=== PATIENT | female | born 1980 | race African-American/Black ===

== ENCOUNTER 2016-07-25 01:57 | Emergency (ER) | payer BC, OTHER ==
[~2016-07-25] VITALS: Ht 160 cm; Wt 75.4 kg
[2016-07-25 02:05] VITALS: TEMP 36.7; Ht 160 cm; Wt 75.4 kg
[2016-07-25] MEDS ORDERED: ALBUT/IPRATROP 3MG/0.5MG NEB 3 ML VIAL INH ONE (02:30)
[2016-07-25] MEDS ORDERED: PRED20TA2 PO (03:04)
[2016-07-25 03:15] VITALS: BP 158/64; PULSE 90; O2SAT 98
--- NOTE | 2016-07-25 07:03 | DIAGNOSTIC IMAGING REPORT ---
CHEST 2 VIEWS ROUTINE CLINICAL HISTORY: Cough. Wheezing COMPARISON STUDY: No previous studies for comparison. FINDINGS: The cardiac and mediastinal contours are normal. There is no evidence of focal pulmonary consolidation. There is no evidence of failure. No pleural effusions are visualized.[ IMPRESSION: No active disease in the chest. Electronically signed by: Dakota Hutchinson M.D. 07/25/2016 7:02 AM Dictated Date/Time: 07/25/2016 7:02 AM
--- NOTE | 2016-07-25 22:09 | EMERGENCY ROOM VISIT NOTE ---
History First contact with patient: 02:11 Chief Complaint: SHORTNESS OF BREATH Stated Complaint: SHORTNESS OF BREATH Nursing Triage Summary: pt reports cough with wheezing and sob started last night at [facility] dx with pneumonia started on abx and prednisone History of Present Illness The patient is a 35 year old female who presents to the Emergency Room with complaints of coughing and wheezing for the past 4-5 hours. The patient states that she was feeling well throughout the day, went home, and was getting ready for bed when she had a cigarette. The patient states that after she smoked a cigarette she began coughing and wheezing. She has had persistent symptoms for the past several hours because of this. She has not had fever or chills. No recent travel history. No chest pain. The patient has a history of pneumonia 2 months ago, and she is concerned that she may have the same. She rates her discomfort a 5/10. Review of Systems More than 10 systems were reviewed and otherwise negative with the exception of history of present illness. Past Medical/Surgical History No reported chronic medical disease Family History No pertinent family history Social History Smoking Status: Current Every Day Smoker Current/Historical Medications Scheduled Prednisone (Prednisone Tab), 2 TAB PO DAILY Allergies Coded Allergies: Shellfish (Verified Allergy, Intermediate, throat gets itchy, 07/25/16) Physical Exam Vital Signs Date Time Temp Pulse Resp B/P (MAP) Pulse Ox O2 Delivery O2 Flow Rate FiO2 07/25/16 03:15 90 20 158/64 98 07/25/16 02:05 36.7 93 18 159/98 95 Room Air Pain Rating (0-10): 0 Physical Exam VITALS: Vitals are noted on the nurse's note and reviewed by myself. Vital signs stable. GENERAL: Well-developed, well-nourished, black female, who is in no acute distress and resting comfortably. Patient is cooperative with the examination. HEAD: Normocephalic atraumatic. NECK: Supple without nuchal rigidity. No lymphadenopathy. No thyromegaly. Cervical spine is nontender. HEART: Regular rate and rhythm without murmurs gallops or rubs. LUNGS: Coarse wheezing and rhonchi throughout without distinct crackles or rales ABDOMEN: Positive normal bowel sounds x 4. Soft, nontender, without masses or organomegaly. No guarding or rebound tenderness. MUSCULOSKELETAL: No muscle atrophy, erythema, or edema noted. Full range of motion without joint tenderness in all extremities. Negative Homans sign bilateral Medical Decision & Procedures ER Provider Diagnostic Interpretation: CHEST 2 VIEWS ROUTINE CLINICAL HISTORY: Cough. Wheezing COMPARISON STUDY: No previous studies for comparison. FINDINGS: The cardiac and mediastinal contours are normal. There is no evidence of focal pulmonary consolidation. There is no evidence of failure. No pleural effusions are visualized.[ IMPRESSION: No active disease in the chest. Medications Administered Medications (Trade) Dose Ordered Sig/Wade Route Start Time Stop Time Status Last Admin Dose Admin Albuterol/ Ipratropium (Duoneb) 3 ml NOW ONCE INH 07/25/16 02:30 07/25/16 02:31 DC 07/25/16 02:29 3 ML Prednisone (PredniSONE TAB) 40 mg NOW STAT PO 07/25/16 02:18 07/25/16 02:20 DC 07/25/16 02:29 40 MG ED Course Physical exam and history were performed. Nursing notes and EMR were reviewed. Patient appears to have coughing and wheezing after smoking a cigarette for 5 hours ago. The patient does not appear toxic on examination. She was given a DuoNeb and a dose of prednisone here in the ER. Chest x-ray was performed and does not show evidence of pulmonary findings. After treatment here in the department the patient felt much better and her wheezing is significantly improved. The patient feels well for discharge home. I suspect that she may have some component of a reactive airway process that was exacerbated by smoking. She should discontinue smoking. She will be given a course of prednisone for the next few days and asked to follow with her PCP for further care and management. The chart was completed utilizing [employer] Speech Voice Recognition Software. Grammatical errors, random word insertions, pronoun errors, and incomplete sentences are an occasional consequence of this system due to software limitations, ambient noise, and hardware issues. Any formal questions or concerns about the content, text, or information contained within the body of this dictation should be directly addressed to the provider for clarification. . Medical Decision Differential diagnosis: Etiologies such as infections, reactive airway disease, pneumonia, pneumothorax , COPD, CHF, cardiac ischemia, pulmonary embolism, musculoskeletal, gastrointestinal, as well as others were entertained. Impression Primary Impression: Cough Departure Information Dispostion Home / Self-Care Condition GOOD Prescriptions Prednisone (Prednisone Tab) 20 Mg Tab 2 TAB PO DAILY for 4 Days, #8 TAB Prov: John Avalos PA-C 07/25/16 Forms HOME CARE DOCUMENTATION FORM, Work Instructions, Additional Instructions: Patient was seen and evaluated today in the emergency department fo medical care. Return to work on 07/26/2016. Please excuse. IMPORTANT VISIT INFORMATION Patient Instructions [facility] Additional Instructions You were seen and evaluated today on an emergency basis only. This is not a substitute for, or an effort to provide, complete comprehensive medical care. It is not possible to recognize and treat all injuries or illnesses in a single emergency department visit. For this reason it is recommended that you followup with your primary care physician this week for ongoing care and evaluation. Take prednisone 40 mg daily for the next 4 days. This medication in the morning with food. You are welcome to return to the emergency department anytime with new, worsening, or concerning symptoms. Work Instructions Additional Work Instructions: Patient was seen and evaluated today in the emergency department for medical care. Return to work on 07/26/2016. Please excuse.
== END 2016-07-25 03:15 | disposition home or self-care (01) ==
LOC: C.EDB 01:58
DX: R05 Cough (principal); Z87.01 Personal history of pneumonia (recurrent); F17.210 Nicotine dependence, cigarettes, uncomplicated